=== PATIENT | female | born 1995 | race Caucasian/White ===

== ENCOUNTER 2018-04-30 09:11 | Emergency (ER) | payer OTHER ==
[2018-04-30] MEDS: IBUPROFEN 800 MG TAB PO (09:50)
== END 2018-04-30 11:39 | disposition home or self-care (01) ==
LOC: M ED 09:11
DX: S93.401A Sprain of unspecified ligament of right ankle, initial encounter (principal); W17.2XXA Fall into hole, initial encounter; Y92.138 Other place on military base as the place of occurrence of the external cause; Y93.02 Activity, running; Z87.81 Personal history of (healed) traumatic fracture
CPT/HCPCS: 73610

== ENCOUNTER 2018-07-03 13:17 | Emergency (ER) | payer OTHER ==
[2018-07-03 14:14] LABS: HEMATOCRIT 41.4 % (36.0-47.0); HEMOGLOBIN 12.8 g/dl (12.0-15.5); MEAN CORPUSCULAR HEMOGLOBIN 30.2 pg (27.0-33.0); MEAN CORPUSCULAR HGB CONC 30.9 g/dl (32.0-36.5); MEAN CORPUSCULAR VOLUME 97.6 fl (80.0-96.0); PLATELET COUNT, AUTOMATED 334 10^3/uL (150-450); RED BLOOD COUNT 4.24 10^6/uL (4.00-5.40); RED CELL DISTRIBUTION WIDTH 13.2 % (11.5-14.5); WHITE BLOOD COUNT 8.9 10^3/uL (4.0-10.0)
[2018-07-03 14:32] LABS: CONTROL LINE HCG INT CTR LINE PRESENT; HCG, SERUM QUALITATIVE NEGATIVE (NEGATIVE)
[2018-07-03 14:34] LABS: AMPHETAMINES LEVEL URINE NEGATIVE (NEGATIVE); BARBITURATES URINE NEGATIVE (NEGATIVE); BENZODIAZEPINES URINE NEGATIVE (NEGATIVE); CANNABINOIDS URINE NEGATIVE (NEGATIVE); COCAINE METABOLITE URINE NEGATIVE (NEGATIVE); METHADONE URINE NEGATIVE (NEGATIVE); OPIATES URINE NEGATIVE (NEGATIVE); PHENCYCLIDINE URINE NEGATIVE (NEGATIVE)
[2018-07-03 14:55] LABS: ALBUMIN 3.6 GM/DL (3.2-5.2); ALBUMIN/GLOBULIN RATIO 0.88 (1.00-1.93); ALKALINE PHOSPHATASE 96 U/L (45-117); ALT/SGPT 25 U/L (12-78); ANION GAP 8 MEQ/L (8-16); AST/SGOT 19 U/L (7-37); BILIRUBIN,DIRECT 0.1 MG/DL (0.0-0.2); BILIRUBIN,TOTAL 0.5 MG/DL (0.2-1.0); BLOOD UREA NITROGEN 4 MG/DL (7-18); CALCIUM LEVEL 8.8 MG/DL (8.5-10.1); CARBON DIOXIDE LEVEL 25 MEQ/L (21-32); CHLORIDE LEVEL 107 MEQ/L (98-107); CREATININE FOR GFR 0.61 MG/DL (0.55-1.30); GLOMERULAR FILTRATION RATE > 60.0 (>60); GLUCOSE, FASTING 84 MG/DL (70-100); SALICYLATE LEVEL < 1.7 MG/DL (5.0-30.0); SODIUM LEVEL 140 MEQ/L (136-145); THYROID STIMULATING HORMONE 0.508 uIU/ML (0.358-3.740); TOTAL PROTEIN 7.7 GM/DL (6.4-8.2)
[2018-07-03 14:56] LABS: ACETAMINOPHEN LEVEL < 2.0 UG/ML (10.0-30.0); ETHYL ALCOHOL (ETHANOL) < 0.003 % (0.000-0.010)
== END 2018-07-03 18:17 | disposition home or self-care (01) ==
LOC: M ED 13:17
DX: R45.851 Suicidal ideations (principal); F32.1 Major depressive disorder, single episode, moderate; S71.111A Laceration without foreign body, right thigh, initial encounter; S61.512A Laceration without foreign body of left wrist, initial encounter; X78.9XXA Intentional self-harm by unspecified sharp object, initial encounter; Y92.89 Other specified places as the place of occurrence of the external cause; F43.11 Post-traumatic stress disorder, acute; F42.9 Obsessive-compulsive disorder, unspecified; Z81.8 Family history of other mental and behavioral disorders
CPT/HCPCS: G0480

== ENCOUNTER 2019-03-23 08:11 | Emergency (ER) | payer OTHER ==
[~2019-03-23] VITALS: Ht 185.4 cm; Wt 121.3 kg
[~2019-03-23 08:11] MED LIST: DOXY100C37 PO; IBUP80TA PO; MAGICMW SSP
[2019-03-23 09:00] LABS: BASO % 0.4 % (0.0-1.0); EOS % 0.4 % (0.0-3.0); HEMATOCRIT 40.5 % (36.0-47.0); HEMOGLOBIN 12.7 g/dl (12.0-15.5); LYMPH # 1.9 10^3/uL (1.5-6.5); LYMPH % 27.7 % (24.0-44.0); MEAN CORPUSCULAR HEMOGLOBIN 30.3 pg (27.0-33.0); MEAN CORPUSCULAR HGB CONC 31.4 g/dl (32.0-36.5); MEAN CORPUSCULAR VOLUME 96.7 fl (80.0-96.0); MONO # 0.4 10^3/uL (0.0-0.8); MONO % 5.4 % (0.0-5.0); NEUTROPHILS # 4.6 10^3/uL (1.8-7.7); NEUTROPHILS % 65.8 % (36.0-66.0); PLATELET COUNT, AUTOMATED 297 10^3/uL (150-450); RED BLOOD COUNT 4.19 10^6/uL (4.00-5.40)
[2019-03-23] MEDS ORDERED: GI COCKTAIL 50ML BTL(HYOSCYAMINE/MAALOX/LIDOCAINE VISCOUS)(1:3:1) PO ONE (09:00)
[2019-03-23 09:24] LABS: HCG, SERUM QUALITATIVE NEGATIVE (NEGATIVE)
[2019-03-23 09:32] LABS: BLOOD UREA NITROGEN 7 MG/DL (7-18); CARBON DIOXIDE LEVEL 26 MEQ/L (21-32); CHLORIDE LEVEL 108 MEQ/L (98-107); CREATININE FOR GFR 0.66 MG/DL (0.55-1.30); GLOMERULAR FILTRATION RATE > 60.0 (>60); GLUCOSE, FASTING 82 MG/DL (70-100); POTASSIUM SERUM 3.8 MEQ/L (3.5-5.1); SODIUM LEVEL 144 MEQ/L (136-145)
[2019-03-23 09:33] LABS: ALBUMIN 3.6 GM/DL (3.2-5.2); ALT/SGPT 17 U/L (12-78); BILIRUBIN,DIRECT 0.1 MG/DL (0.0-0.2); BILIRUBIN,TOTAL 0.6 MG/DL (0.2-1.0); CK-MB VALUE MASS < 1.0 NG/ML (<3.6); CPK CREATINE PHOSPHOKINASE 81 U/L (26-192); LIPASE 79 U/L (73-393); MB/CK RELATIVE INDEX 1.23 (< OR =4); TOTAL PROTEIN 7.3 GM/DL (6.4-8.2); TROPONIN I < 0.02 NG/ML (< 0.10)
[2019-03-23 09:37] LABS: ERYTHROCYTE SEDIMENTATION RATE 38 mm/hr (0-20)
--- NOTE | 2019-03-23 09:51 | REP ---
Clinical: Acute chest pain . Comparison: 06/24/2017 . Findings: The mediastinum and cardiac silhouette are stable and within normal limits for portable technique. The lung ordoñez are clear without acute consolidation, effusion, or pneumothorax. Skeletal structures are intact. Impression: No acute cardiopulmonary process appreciated. Electronically Signed by Nahun Dougherty MD 03/23/2019 09:42 A
[2019-03-23] MEDS ORDERED: KETOROLAC 30 MG/ML VIAL (J1885) IV ONE (10:15)
[2019-03-23] MEDS ORDERED: ISOVUE-370 76% 100ML VIAL (Q9967) As Ordered ONE (10:27)
--- NOTE | 2019-03-23 10:54 | REP ---
Clinical: Acute pleuritic chest pain. Technique: Axial contrast enhanced images from the thoracic inlet to the upper abdomen using 100 ml Isovue 370 intravenous contrast material with coronal and sagittal re-formations. Findings: Satisfactory enhancement of the pulmonary vasculature is achieved and no filling defects are identified to suggest pulmonary embolus. Thoracic aorta is normal caliber without aneurysm or dissection. Heart and pericardium are normal. Bilateral lung ordoñez are well aerated and clear without acute pulmonary parenchymal consolidation or atelectasis. No nodule or mass lesion. No pleural effusion/reaction. No pneumothorax. No adenopathy. Impression: No evidence for pulmonary embolus. No acute pleuroparenchymal or mediastinal process. Electronically Signed by Nahun Dougherty MD 03/23/2019 10:45 A
[2019-03-23 14:21] LABS: CK-MB VALUE MASS < 1.0 NG/ML (<3.6); CPK CREATINE PHOSPHOKINASE 62 U/L (26-192); MB/CK RELATIVE INDEX 1.61 (< OR =4); TROPONIN I < 0.02 NG/ML (< 0.10)
[2019-03-23] MEDS ORDERED: IBUP-1022 PO (14:50)
[2019-03-23 15:09] VITALS: BP 113/69
--- NOTE | 2019-03-24 11:17 | ECGEPIP ---
[facility] - ED Test Date: 2019-03-23 Pat Name: ASTRID ESTRELLA Department: Room: - Gender: Female Avionics Engineer: corrine : 1995 Requested By: Netta Hood Order Number: [id number] Reading MD: Netta Hood Measurements Intervals [place] Rate: 56 P: 18 MD: 158 QRS: -1 QRSD: 89 T: -20 QT: 375 QTc: 364 Interpretive Statements SINUS BRADYCARDIA WITH MARKED SINUS ARRHYTHMIA MINIMAL VOLTAGE CRITERIA FOR LVH, CONSIDER NORMAL VARIANT NONSPECIFIC T-WAVE ABNORMALITY No prior Electronically Signed on 03-24-2019 11:17:26 EDT by Netta Hood
--- NOTE | 2019-03-24 11:17 | ECGEPIP ---
[facility] - ED Test Date: 2019-03-23 Pat Name: ASTRID ESTRELLA Department: Room: - Gender: Female Privacy Compliance Manager: donna LIUB: 1995 Requested By: Netta Hood Order Number: [id number] Reading MD: Netta Hood Measurements Intervals [place] Rate: 52 P: 31 SD: 149 QRS: 6 QRSD: 91 T: -10 QT: 409 QTc: 381 Interpretive Statements SINUS BRADYCARDIA WITH OCCASIONAL SUPRAVENTRICULAR PREMATURE COMPLEXES NSTTW abnormalities similar 03/23/19 8:42 Electronically Signed on 03-24-2019 11:17:20 EDT by Netta Hood
== END 2019-03-23 15:06 | disposition home or self-care (01) ==
LOC: M ED 08:11
DX: I31.9 Disease of pericardium, unspecified (principal); R00.1 Bradycardia, unspecified; Z82.49 Family history of ischemic heart disease and other diseases of the circulatory system
CPT/HCPCS: 71045; 71275; 80048; 80076; 82550; 82553; 83690; 84443; 84484; 84703; 85025; 85379; 85652; 93005; 93041; 94760; 96374; 99285; J1885; Q9967

== ENCOUNTER 2019-03-25 14:55 | Emergency (ER) | payer OTHER ==
[~2019-03-25] VITALS: Ht 185.4 cm; Wt 118.2 kg
[~2019-03-25 14:55] MED LIST changes: +IBUP-1022 PO
[2019-03-25 16:32] LABS: BASO % 0.5 % (0.0-1.0); EOS # 0.1 10^3/uL (0.0-0.50); EOS % 0.9 % (0.0-3.0); HEMATOCRIT 38.8 % (36.0-47.0); LYMPH # 3.1 10^3/uL (1.5-6.5); LYMPH % 37.3 % (24.0-44.0); MEAN CORPUSCULAR HEMOGLOBIN 29.6 pg (27.0-33.0); MEAN CORPUSCULAR HGB CONC 30.9 g/dl (32.0-36.5); MEAN CORPUSCULAR VOLUME 95.8 fl (80.0-96.0); MONO # 0.4 10^3/uL (0.0-0.8); MONO % 4.5 % (0.0-5.0); NEUTROPHILS # 4.7 10^3/uL (1.8-7.7); NEUTROPHILS % 56.7 % (36.0-66.0); PLATELET COUNT, AUTOMATED 320 10^3/uL (150-450); RED BLOOD COUNT 4.05 10^6/uL (4.00-5.40); WHITE BLOOD COUNT 8.2 10^3/uL (4.0-10.0)
[2019-03-25 16:49] LABS: BLOOD UREA NITROGEN 7 MG/DL (7-18); CARBON DIOXIDE LEVEL 30 MEQ/L (21-32); CHLORIDE LEVEL 108 MEQ/L (98-107); CK-MB VALUE MASS < 1.0 NG/ML (<3.6); CPK CREATINE PHOSPHOKINASE 74 U/L (26-192); CREATININE FOR GFR 0.64 MG/DL (0.55-1.30); GLOMERULAR FILTRATION RATE > 60.0 (>60); GLUCOSE, FASTING 82 MG/DL (70-100); MB/CK RELATIVE INDEX 1.35 (< OR =4); POTASSIUM SERUM 4.3 MEQ/L (3.5-5.1); SODIUM LEVEL 142 MEQ/L (136-145); TROPONIN I < 0.02 NG/ML (< 0.10)
[2019-03-25 19:34] LABS: C REACTIVE PROTEIN QUANTITATIV 0.84 MG/DL (0.00-0.30)
[2019-03-25 19:46] LABS: ERYTHROCYTE SEDIMENTATION RATE 5 mm/hr (0-20)
[2019-03-25 20:13] VITALS: BP 117/72
--- NOTE | 2019-03-26 19:38 | ECGEPIP ---
[facility] - ED Test Date: 2019-03-25 Pat Name: ASTRID ESTRELLA Department: Room: - Gender: Female Habilitative Interventionist: CARLI : 1995 Requested By: JAY Mora PA-C Order Number: [id number] Reading MD: Denver Hermosillo Measurements Intervals [place] Rate: 45 P: 34 MD: 174 QRS: 14 QRSD: 92 T: -9 QT: 419 QTc: 364 Interpretive Statements SINUS BRADYCARDIA WITH SINUS ARRHYTHMIA NSTTW ABNORMALITIES SIMILAR TO 03/23/19 Electronically Signed on 03-26-2019 19:38:22 EDT by Denver Hermosillo
== END 2019-03-25 20:31 | disposition home or self-care (01) ==
LOC: M ED 14:55
DX: R07.89 Other chest pain (principal); R00.1 Bradycardia, unspecified; K27.9 Peptic ulcer, site unspecified, unspecified as acute or chronic, without hemorrhage or perforation; I31.9 Disease of pericardium, unspecified